=== PATIENT | male | born 1970 | race Caucasian/White ===

== ENCOUNTER 2017-12-05 11:38 | Inpatient (IN) | END 2017-12-05 21:00 | disposition home or self-care (01) | DRG 520 ==

== ENCOUNTER 2018-10-31 05:21 | Inpatient (IN) | payer BC, OTHER ==
[~2018-10-31] VITALS: Ht 170.2 cm; Wt 72.4 kg
[2018-10-31] VITALS (24 sets, daily range): BP systolic 100–154; BP diastolic 57–91; PULSE 68–97; RESP 11–26; Ht 170.2 cm; Wt 72.4 kg
[~2018-10-31 05:21] MED LIST: AMPH20TA2 PO; GABA600T PO; HYDR50CA PO; OXYC-209 PO; OXYC-536 PO; TAMS-14 PO
[2018-10-31] MEDS ORDERED: CEFAZOLIN 2 GM/50 ML (PMX) 50 ML IVPB ONE (06:00)
[2018-10-31] MEDS ORDERED: LACTATED RINGER'S 1,000 ML IV SCH (06:00)
[2018-10-31] MEDS ORDERED: HYDROmorphONE 2 MG/ML SYG ONE (06:53)
[2018-10-31] MEDS ORDERED: METOCLOPRAMIDE 10 MG INJ ONE (06:53)
[2018-10-31] MEDS ORDERED: ONDANSETRON 4 MG INJ ONE (06:53)
[2018-10-31] MEDS ORDERED: PROPOFOL 20 ML ONE ×2 (06:53→10:54)
[2018-10-31] MEDS ORDERED: ROCURONIUM 50 MG INJ ONE ×3 (06:53→11:30)
[2018-10-31] MEDS ORDERED: CEFAZOLIN 1 GM INJ ONE ×2 (06:53→07:46)
[2018-10-31] MEDS ORDERED: MIDAZOLAM 1 MG/ML 2 ML INJ ONE (06:55)
[2018-10-31] MEDS ORDERED: DESFLURANE 15 MIN ONE (07:00)
[2018-10-31] MEDS ORDERED: HYDROmorphONE 0.5 MG/0.5 ML SYG IV PRN (07:30)
[2018-10-31] MEDS ORDERED: DIPHENHYDRAMINE 25 MG CAP PO PRN (07:30)
[2018-10-31] MEDS ORDERED: ONDANSETRON 4 MG INJ IV PRN ×2 (07:30→10:00)
[2018-10-31] MEDS ORDERED: AL HYDROX/MG HYDROX/SIMETH 30 ML CUP PO PRN (07:30)
[2018-10-31] MEDS ORDERED: CEPASTAT LOZENGE MT PRN (07:30)
[2018-10-31] MEDS ORDERED: DIPHENHYDRAMINE 50 MG INJ IV PRN ×2 (07:30→10:00)
[2018-10-31] MEDS ORDERED: BISACODYL 10 MG SUPP PR PRN (07:30)
[2018-10-31] MEDS ORDERED: ACETAMINOPHEN 325 MG TAB PO PRN (07:30)
[2018-10-31] MEDS ORDERED: OXYCODONE/ACETAMINOPHEN (10/325) TAB PO PRN (07:30)
[2018-10-31] MEDS ORDERED: NALOXONE (0.4 MG/ML) INJ IV PRN (07:30)
[2018-10-31] MEDS ORDERED: ROPIVACAINE 0.5 % 30 ML VIAL ONE (07:45)
[2018-10-31] MEDS ORDERED: BUPIVACAINE 0.5%/EPI (SDV) 30 ML INJ ONE (07:46)
[2018-10-31] MEDS ORDERED: THROMBIN 20,000 UNIT VIAL ONE (07:46)
[2018-10-31] MEDS ORDERED: GELATIN SIZE 100 SPONGE ONE (07:46)
[2018-10-31] MEDS ORDERED: HEPARIN 1000 UNITS/ML 10 ML INJ ONE (07:46)
[2018-10-31] MEDS ORDERED: hydrALAzine 20 MG INJ ONE (08:16)
[2018-10-31] MEDS: TIZANIDINE 4 MG TAB PO SCH ×3 (09:00→20:51)
[2018-10-31] MEDS: oxyCODONE (CR) 15 MG TAB [oxyCONTIN] PO SCH ×2 (09:00→20:50)
[2018-10-31] MEDS ORDERED: HYDROmorphONE 1 MG/5 ML IV SYRINGE IV PRN ×3 (10:00)
[2018-10-31] MEDS ORDERED: FENTAnyl 50 MCG/ML VIAL IV PRN ×3 (10:00)
[2018-10-31] MEDS ORDERED: MEPERIDINE 25 MG INJ IV PRN (10:00)
[2018-10-31] MEDS ORDERED: FENTAnyl 50 MCG/ML VIAL ONE ×2 (10:51→11:31)
[2018-10-31] MEDS ORDERED: GLYCOPYRROLATE 0.4 MG INJ ONE (11:19)
[2018-10-31] MEDS ORDERED: NEOSTIGMINE 3 MG/3 ML SYRINGE ONE (11:19)
[2018-10-31] MEDS: HYDROmorphONE 0.2 MG/ML PCA IV SCH ×2 (11:48→20:25)
[2018-10-31] MEDS: GABAPENTIN 300 MG CAP PO SCH ×5 (12:16→20:50)
[2018-10-31] MEDS: DOCUSATE SODIUM 100 MG CAP PO SCH ×2 (12:16→20:48)
[2018-10-31] MEDS: CEFAZOLIN 1 GM/50 ML (PMX) 50 ML IVPB SCH ×2 (13:24→20:53)
[2018-10-31] MEDS: D5W-0.45 NACL + KCL 20 MEQ 1,000 ML IV SCH ×2 (14:05→17:02)
[2018-11-01] MEDS: D5W-0.45 NACL + KCL 20 MEQ 1,000 ML IV SCH (01:31)
[2018-11-01] MEDS: HYDROmorphONE 0.2 MG/ML PCA IV SCH (04:22)
[2018-11-01] MEDS: CEFAZOLIN 1 GM/50 ML (PMX) 50 ML IVPB SCH (05:05)
[2018-11-01] MEDS ORDERED: PANTOPRAZOLE 40 MG INJ IV SCH (06:00)
[2018-11-01 08:00] VITALS: BP 118/69; PULSE 83; RESP 18
[2018-11-01] MEDS: GABAPENTIN 300 MG CAP PO SCH ×4 (09:00→13:00)
[2018-11-01] MEDS: oxyCODONE (CR) 15 MG TAB [oxyCONTIN] PO SCH (09:00)
[2018-11-01] MEDS: DOCUSATE SODIUM 100 MG CAP PO SCH (09:05)
[2018-11-01] MEDS: TIZANIDINE 4 MG TAB PO SCH ×2 (09:05→12:52)
[2018-11-01] MEDS: OXYCODONE/ACETAMINOPHEN (10/325) TAB PO PRN ×2 (10:31→12:52)
[2018-11-01] MEDS ORDERED: ARTIFICIAL TEARS 15 ML OPH BOTH EYES SCH (13:00)
== END 2018-11-01 14:40 | disposition home or self-care (01) | DRG 455 ==
LOC: REC 05:21 → EDSTATUS 07:00 → MS1 13:34
PROVIDERS: ADMIT Specialist; ATTEND Specialist
PROC: 0SG10J1 Fusion of 2 or more Lumbar Vertebral Joints with Synthetic Substitute, Posterior Approach, Posterior Column, Open Approach (ICD-10-PCS; 2018-10-31)
PROC: 0SG30A0 Fusion of Lumbosacral Joint with Interbody Fusion Device, Anterior Approach, Anterior Column, Open Approach (ICD-10-PCS; 2018-10-31)
PROC: 0ST20ZZ Resection of Lumbar Vertebral Disc, Open Approach (ICD-10-PCS; 2018-10-31)
PROC: 0ST40ZZ Resection of Lumbosacral Disc, Open Approach (ICD-10-PCS; 2018-10-31)
PROC: 0SG00A0 Fusion of Lumbar Vertebral Joint with Interbody Fusion Device, Anterior Approach, Anterior Column, Open Approach (ICD-10-PCS; principal; 2018-10-31 07:00)
DX: M51.16 Intervertebral disc disorders with radiculopathy, lumbar region (principal); M51.27 Other intervertebral disc displacement, lumbosacral region; F41.9 Anxiety disorder, unspecified; G89.4 Chronic pain syndrome; F98.8 Other specified behavioral and emotional disorders with onset usually occurring in childhood and adolescence; R50.82 Postprocedural fever
CPT/HCPCS: 72020; 72110; 80048; 81001; 83735; 85025; 86850; 86900; 86901; 86920; 87086; 88304; 97116; 97161; 97530; C1713; C9113; J0360; J0690; J1170; J1200; J1644; J2175; J2250; J2405; J2710; J2765; J2795; J3010; J3480; V2790